=== PATIENT | male | born 1995 | race Caucasian/White ===

== ENCOUNTER 2021-07-29 13:23 | Emergency (ER) | payer SELFPAY ==
[2021-07-29 14:39] LABS: BASOPHIL 0.3 % (0-2); EOSINOPHIL 0.8 % (0-5); HCT 47.8 % (42.0-52.0); HGB 15.8 g/dl (13.2-18.0); LYMPHOCYTE 14.2 % (15-48); MCH 29.2 pg (25.0-31.0); MCHC 33.1 g/dL (32.0-36.0); MCV 88.2 fL (78.0-100.0); MONOCYTE 5.5 % (0-12); MPV 10.4 fL (6.0-9.5); NEUTROPHIL 78.9 % (41-80); NRBC 0; PLT 170 K/uL (150-400); RBC 5.42 M/uL (4.70-6.00); RDW 12.9 % (11.5-14.0); WBC 8.7 K/uL (4.0-10.5)
[2021-07-29 15:04] LABS: ALBUMIN 4.4 g/dL (3.4-5.0); BILIRUBIN - TOTAL 0.6 mg/dL (0.2-1.0); BUN/CREAT RATIO (CALC) 15.3 RATIO; CREATININE 1.24 mg/dL (0.67-1.17); GLOBULIN (CALCULATION) 3.2 g/dL; POTASSIUM 3.8 mmol/L (3.5-5.1); TOTAL PROTEIN 7.6 g/dL (6.4-8.2)
== END 2021-07-29 16:38 | disposition other institution (70) ==
LOC: FER 13:23
PROVIDERS: Nurse Practitioner Family
DX: N44.00 Torsion of testis, unspecified (principal); Z20.822 Contact with and (suspected) exposure to COVID-19
CPT/HCPCS: 36415; 76870; 80053; 82150; 83690; 85025; J1885; J2405; J7030; U0002